=== PATIENT | male | born 1965 | race Two or more races ===

== ENCOUNTER 2025-08-12 06:40 | Day surgery (SDC) | payer MEDICAID, SELFPAY ==
[2025-08-09 14:35] VITALS: BMI 29.1
[2025-08-12] VITALS (9 sets, daily range): BP systolic 108–134; BP diastolic 71–81; PULSE 69–80; RESP 11–18; TEMP 36.3–37.1; O2SAT 95–100; BMI 29.1
[2025-08-12] MEDS: MIDAZOLAM INJ 1 MG/ML VIAL 2 ML (ASD USE ONLY) 2 MG IVP (08:09)
[2025-08-12] MEDS: fentaNYL CIT INJ 50 mCg/ML AMP 2ML (ASD USE ONLY) IVP (08:09)
[2025-08-12] MEDS: SODIUM CHLORIDE 0.9% 500 ML 500 ML 20 ML IV (08:09)
== END 2025-08-12 09:00 | disposition home or self-care (01) ==
PROVIDERS: PCP Nurse Practitioner Family; Referring Provider Surgery; Visit Provider Surgery
PROC: 0DBE8ZX Excision of Large Intestine, Via Natural or Artificial Opening Endoscopic, Diagnostic (ICD-10-PCS; CPT 45380; principal; 2025-08-12 08:00)
DX: Z12.11 Encounter for screening for malignant neoplasm of colon (principal); K64.1 Second degree hemorrhoids; K57.30 Diverticulosis of large intestine without perforation or abscess without bleeding; E11.9 Type 2 diabetes mellitus without complications; E78.00 Pure hypercholesterolemia, unspecified; I10 Essential (primary) hypertension; Z79.82 Long term (current) use of aspirin; Z79.899 Other long term (current) drug therapy
CPT/HCPCS: 45378; A4649; J1200; J2250; J3010; J7999